=== PATIENT | female | born 1985 | race Caucasian/White ===

== ENCOUNTER 2016-10-16 18:07 | Emergency (ER) | payer OTHER ==
[~2016-10-16] VITALS: Ht 162.6 cm; Wt 62.1 kg
--- NOTE | 2016-10-16 18:32 | ED INFLUENZA/URI COMPLAINT ---
History of Present Illness General Chief Complaint: General Adult Stated Complaint: PT VOMITING,BAD SINUS HEADACHE 14 WKS PREG Source: patient Exam Limitations: no limitations Vital Signs & Intake/Output Vital Signs & Intake/Output Vital Signs Date Time Temp Pulse Resp B/P Pulse O2 O2 Flow FiO2 Ox Delivery Rate 10/16 1811 97.8 68 18 116/69 96 Room Air Reconcile Medications Azithromycin (Zithromax) 250 MG TABLET 1 DP PO AD sinusitis 2 the first day followed by 1 for days 2-5 Ondansetron (Zofran Odt) 4 MG TAB.RAPDIS 1 TAB SL TID PRN nausea Triage Note: PT STATES THAT SHE IS 14 WEEKS WITH TWINS STARTED WITH HEAD AND EAR PRESSURE AROUND 1230 AND STARTED VOMITTING FROM THE PAIN AROUND 1400. PAIN HAS BEEN CONSTANT, STATES THAT SHE WAS TREATED WITH ABT A FEW WEEKS AGO FOR SINUS INFECTION Triage Nurses Notes Reviewed? yes : Yes Patient currently breastfeeds: No HPI: 30-year-old female 14 weeks , twin , uncomplicated thus far. Here with complaints of sinus pain and pressure, bilateral ear pain that started today. . She states the pain was so bad that it caused her to vomit. She has no abdominal pain or pelvic pain no back pain or cramping. 3 days of "low grade fever", taking tylenol. She was treated with antibiotics 3 weeks ago for sinusitis. She does not feel as though she got any better since then. Constant pain and pressure in the frontal sinus region, mostly on the right side , causing her to be painful and nauseous. She has decreased appetite today and decreased by mouth intake and she states that she has decreased urinary output. Headache is severe, Symptoms are throbbing pressure. called PCP and was told to come to ER. Past History Travel History Traveled to [place] past 21 day No Medical History Any Pertinent Medical History? see below for history Neurological: migraine EENT: NONE Cardiovascular: NONE Respiratory: NONE Gastrointestinal: NONE Hepatic: NONE Renal: NONE Musculoskeletal: NONE Psychiatric: NONE Endocrine: NONE Blood Disorders: NONE Cancer(s): NONE INFORMATICS MANAGER/Reproductive: NONE Surgical History Surgical History: unobtainable Psychosocial History What is your primary language Luxembourgish Tobacco Use: Never used ETOH Use: denies use Illicit Drug Use: denies illicit drug use Family History Hx Contributory? No Review of Systems Review of Systems Constitutional: Reports: see HPI. EENTM: Reports: see HPI. Respiratory: Reports: no symptoms. Cardiovascular: Reports: no symptoms. GI: Reports: no symptoms. Genitourinary: Reports: no symptoms. Musculoskeletal: Reports: no symptoms. Skin: Reports: no symptoms. Neurological/Psychological: Reports: no symptoms. Hematologic/Endocrine: Reports: no symptoms. Immunologic/Allergic: Reports: no symptoms. All Other Systems: Reviewed and Negative Physical Exam Physical Exam General Appearance: well developed/nourished Ears, Nose, Throat: moist mucous membrane, hearing grossly normal, Tympanic normal, pharynx normal, nasal congestion (boggy nasal turbinates), nasal drainage Comments: Well-developed well-nourished person in no acute distress HEENT: Tenderness frontal and maxillary sinus. Extraocular motion intact, no nystagmus. Pupils equally round and reactive to light. Nose is atraumatic. External auditory canal and Tympanic membranes clear. Pharynx normal. No swelling or edema. Neck: Supple, no lymphadenopathy, normal range of motion without pain or tenderness Back: Nontender, no CVA tenderness. Full range of motion Cardiovascular: Regular rate and rhythms no murmurs, normal JVP Respiratory: Chest nontender. No respiratory distress. Breath sounds clear to auscultation bilaterally Abdomen: Soft, nontender nondistended, no appreciable organomegaly. Normal bowel sounds. No ascites Gravid. Extremity: No edema, no calf tenderness to palpation, normal and equal pulses. Neuro: Alert oriented x3, motor sensory normal, cranial nerves II through XII grossly intact. Skin: No appreciable rash on exposed skin, skin is warm and dry. Psych: Mood and affect is normal, memory and judgment is normal. Core Measures Severe Sepsis Present: No Septic Shock Present: No Progress Differential Diagnosis: influenza, meningitis, neutropenia, otitis, pneumonia, pharyngitis, sinusitis Plan of Care: Orders Procedure Date/time Status Saline Lock 10/16 843 Active Initial ED EKG: none Comments: Patient is feeling dehydrated, she is given 1 L of IV fluid and 4 mg of Zofran IV for nausea. She was reevaluated and is feeling better. Bedside Doppler's were performed, both fetuses heart rates were around [address] and [address]. [address] will place her on Zithromax for her sinusitis infection and recommend close follow-up with [facility], given Zofran as outpatient as well for nausea. Return with worsening symptoms. Discussed with Dr. Mcdonald Departure Departure Disposition: HOME OR SELF CARE Condition: Stable Clinical Impression Primary Impression: Sinusitis Qualifiers: Sinusitis location: maxillary Chronicity: acute Recurrence: recurrent Qualified Code: J01.01 - Acute recurrent maxillary sinusitis Secondary Impressions: Dehydration Headache Qualifiers: Headache type: unspecified Headache chronicity pattern: acute headache Intractability: not intractable Qualified Code: R51 - Headache Nausea & vomiting Qualifiers: Vomiting type: unspecified Vomiting Intractability: non-intractable Qualified Code: R11.2 - Nausea with vomiting, unspecified Referrals: THAIS GAFFNEY MD (PCP/Family) Additional Instructions: Tylenol for your pain, drink plenty of fluids. Take Zofran as needed for nausea. Takes Zithromax for your sinus infection. Follow-up with her [facility] in 5-7 days if your symptoms continue. Departure Forms: Customer Survey General Discharge Information Prescriptions: Current Visit Scripts Azithromycin (Zithromax) 1 DP PO AD #6 TAB 2 the first day followed by 1 for days 2-5 Ondansetron (Zofran Odt) 1 TAB SL TID PRN nausea #15 TAB
[2016-10-16] MEDS ORDERED: ZITHROMAX250 M2 PO (19:35)
[2016-10-16] MEDS ORDERED: ZOFRAN ODT4 M1 SL (19:35)
[2016-10-16 20:05] VITALS: BP 106/58
== END 2016-10-16 20:08 ==
LOC: ERH 18:07
DX: O99.512 Diseases of the respiratory system complicating pregnancy, second trimester (principal); J32.9 Chronic sinusitis, unspecified; Z3A.14 14 weeks gestation of pregnancy
CPT/HCPCS: 96374; J2405